=== PATIENT | female | born 1965 | race African-American/Black ===

== ENCOUNTER 2021-12-04 07:10 | Day surgery (SDC) | payer BC, OTHER ==
[2021-12-02 15:23] VITALS: BMI 21.2
[2021-12-04] MEDS ORDERED: Lidocaine 1% w/Epinephrine 1:100K 20 ML VIAL ONE (08:45)
[2021-12-04] MEDS ORDERED: Dexmedetomidine 200 MCG/2 ML VIAL ONE (09:27)
[2021-12-04] MEDS ORDERED: fentaNYL Citrate/PF 100 MCG/2 ML SYRINGE ONE (09:27)
[2021-12-04] MEDS ORDERED: Bacitracin Zinc Ointment 30 gm TUBE ONE (10:38)
[2021-12-04] MEDS ORDERED: Fentanyl 100 MCG/2 ML VIAL ONE (12:05)
[2021-12-04] MEDS ORDERED: Hydrocodone-Acetamin 15 ML UDCUP ONE (12:40)
== END 2021-12-04 14:45 | disposition home or self-care (01) ==
LOC: SDC 07:10
PROVIDERS: ATTEND Otolaryngology Plastic Surgery within the Head & Neck
PROC: 0GTG0ZZ Resection of Left Thyroid Gland Lobe, Open Approach (ICD-10-PCS; principal; 2021-12-04)
DX: E04.1 Nontoxic single thyroid nodule (principal); E06.3 Autoimmune thyroiditis; Z79.899 Other long term (current) drug therapy
CPT/HCPCS: 85014; 88307; 93005; 93010; C1776; C1889; J3010